=== PATIENT | male | born 1970 | race Two or more races ===

== ENCOUNTER 2018-11-11 19:48 | Emergency (ER) | payer MEDICAID ==
[~2018-11-11] VITALS: Ht 185.4 cm; Wt 94.3 kg
[~2018-11-11 19:48] MED LIST: BP MEDS; BUPR100 PO; CLIN150 PO; Cipro500 MG PO; Cleocin HCl300 MG PO; HYDR1TAB94 PO; LEVFLO500 PO; Norco 5-325 Ta1 EACH PO; Percocet 10-321 EACH PO; Percocet 5-3251 EACH PO; SULTRIDS PO; Vibramycin100 MG PO
== END 2018-11-11 21:33 | disposition home or self-care (01) ==
LOC: ER 19:48
DX: N34.2 Other urethritis (principal); Z20.2 Contact with and (suspected) exposure to infections with a predominantly sexual mode of transmission
CPT/HCPCS: 96372; 99283-25; J1580

== ENCOUNTER 2019-01-02 06:14 | Day surgery (SDC) | payer OTHER ==
[~2019-01-02] VITALS: Ht 185.4 cm; Wt 93.2 kg
[~2019-01-02 06:14] MED LIST changes: +Bactrim Ds Tab1 EACH PO; +CEPH500 PO
--- NOTE | 2019-01-02 07:58 | NUR ---
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
--- NOTE | 2019-01-02 08:34 | NUR ---
01/02/19 0834 Ashley Weir PT MOVING THROUGH OUT PROCEDURE. PRIOR TO PROCEDURE STARTING PT WAS DROWSY IN PRE-OP, BP HIGH, AWARE AND DR. PEREZ TO PROCEED
== END 2019-01-02 09:10 | disposition home or self-care (01) ==
LOC: ORSCSDS 06:14
PROVIDERS: Surgery
PROC: 0DJD8ZZ Inspection of Lower Intestinal Tract, Via Natural or Artificial Opening Endoscopic (ICD-10-PCS; principal; 2019-01-02 08:00)
DX: K62.5 Hemorrhage of anus and rectum (principal); Z86.010 Personal history of colon polyps; Z80.0 Family history of malignant neoplasm of digestive organs; E78.00 Pure hypercholesterolemia, unspecified; Z87.891 Personal history of nicotine dependence
CPT/HCPCS: J0461; J2250; J2405; J2704; J7120

== ENCOUNTER 2019-04-01 10:53 | Emergency (ER) | payer OTHER ==
[~2019-04-01] VITALS: Ht 185.4 cm; Wt 90.7 kg
[2019-04-01] MEDS ORDERED: SUBOXONE 8 MG-1 EACH PO (11:01)
== END 2019-04-01 12:22 | disposition home or self-care (01) ==
LOC: ER 10:53
DX: K40.90 Unilateral inguinal hernia, without obstruction or gangrene, not specified as recurrent (principal); I10 Essential (primary) hypertension; E78.00 Pure hypercholesterolemia, unspecified; Z88.0 Allergy status to penicillin; F17.210 Nicotine dependence, cigarettes, uncomplicated
CPT/HCPCS: 99283

== ENCOUNTER 2019-04-24 09:20 | Emergency (ER) | payer OTHER ==
[~2019-04-24] VITALS: Ht 185.4 cm; Wt 86.2 kg
[~2019-04-24 09:20] MED LIST changes: +SUBOXONE 8 MG-1 EACH PO
[2019-04-24] MEDS ORDERED: [UNRECOGNIZED DRUG - OTHER] IM (09:36)
== END 2019-04-24 10:24 | disposition home or self-care (01) ==
LOC: ER 09:20
DX: I10 Essential (primary) hypertension (principal); M79.89 Other specified soft tissue disorders; F17.200 Nicotine dependence, unspecified, uncomplicated; Z91.19 Patient's noncompliance with other medical treatment and regimen; Z88.0 Allergy status to penicillin; Z79.891 Long term (current) use of opiate analgesic
CPT/HCPCS: 99283

== ENCOUNTER 2019-05-04 09:38 | Emergency (ER) | payer OTHER ==
[~2019-05-04] VITALS: Ht 185.4 cm; Wt 90.7 kg
[~2019-05-04 09:38] MED LIST changes: +[UNRECOGNIZED DRUG - OTHER] IM
[2019-05-04] MEDS ORDERED: Methadone HCl10 MG PO (10:11)
[2019-05-04] MEDS ORDERED: LISI20 PO (10:11)
[2019-05-04] MEDS ORDERED: Bactrim Ds Tab1 EACH PO (10:15)
[2019-05-04] MEDS ORDERED: CEPH500 PO (10:15)
== END 2019-05-04 10:23 | disposition home or self-care (01) ==
LOC: ER 09:38
DX: L03.116 Cellulitis of left lower limb (principal); I10 Essential (primary) hypertension; F17.200 Nicotine dependence, unspecified, uncomplicated; Z88.0 Allergy status to penicillin; Z79.899 Other long term (current) drug therapy; Z79.891 Long term (current) use of opiate analgesic
CPT/HCPCS: 99283

== ENCOUNTER 2019-09-19 23:57 | Emergency (ER) | payer OTHER ==
[~2019-09-19] VITALS: Ht 182.9 cm; Wt 104.3 kg
[~2019-09-19 23:57] MED LIST changes: +LISI20 PO; +Methadone HCl10 MG PO
== END 2019-09-20 02:15 | disposition left against medical advice (07) ==
LOC: ER 23:57
DX: Z53.21 Procedure and treatment not carried out due to patient leaving prior to being seen by health care provider (principal)

== ENCOUNTER 2020-04-24 15:05 | Emergency (ER) | payer OTHER ==
[~2020-04-24] VITALS: Ht 185.4 cm; Wt 104.3 kg
[2020-04-24] MEDS ORDERED: Bactrim Ds Tab1 EACH PO (15:33)
[2020-04-24] MEDS ORDERED: Keflex500 MG PO (15:33)
== END 2020-04-24 15:42 | disposition home or self-care (01) ==
LOC: ER 15:05
DX: L03.114 Cellulitis of left upper limb (principal); I10 Essential (primary) hypertension; F17.200 Nicotine dependence, unspecified, uncomplicated; Z88.0 Allergy status to penicillin; Z79.899 Other long term (current) drug therapy
CPT/HCPCS: 99283; A9270-GY

== ENCOUNTER 2020-11-24 16:29 | Emergency (ER) | payer OTHER ==
[~2020-11-24] VITALS: Ht 185.4 cm; Wt 104.3 kg
[~2020-11-24 16:29] MED LIST changes: +Keflex500 MG PO
== END 2020-11-24 17:47 | disposition left against medical advice (07) ==
LOC: ER 16:29
DX: Z53.21 Procedure and treatment not carried out due to patient leaving prior to being seen by health care provider (principal)

== ENCOUNTER 2020-11-27 04:14 | Emergency (ER) | payer OTHER ==
[~2020-11-27] VITALS: Ht 185.4 cm; Wt 104.3 kg
[2020-11-27 05:53] LABS: Alanine Aminotransfer (ALT/SGP 20 U/L (12-78); Albumin, Blood 3.5 g/dL (3.4-5.0); Alk Phos 119 U/L (50-136); Anion Gap 4 mmol/L (6-16); Aspartate Aminotrans (AST/SGOT 22 U/L (12-37); Bilirubin, Total 0.2 mg/dL (0.1-1.0); Blood Urea Nitrogen 22 mg/dL (8-24); Bun/Creatinine Ratio 20.2 (12.0-20.0); CO2, Blood 29 mmol/L (21-32); Calcium, Blood 8.5 mg/dL (8.5-10.1); Chloride, Blood 104 mmol/L (98-108); Creatinine, Blood 1.09 mg/dL (0.60-1.20); Globulin, Blood 3.4 g/dL (2.2-4.0); Glomerular Filtration Rate >60 (60-); Glucose, Blood 99 mg/dL (70-99); Potassium, Blood 3.9 mmol/L (3.5-5.5); Sodium, Blood 137 mmol/L (136-145); Total Protein, Blood 6.9 g/dL (6.4-8.2)
[2020-11-27] MEDS ORDERED: Prinivil10 MG PO (05:58)
== END 2020-11-27 06:54 | disposition home or self-care (01) ==
LOC: ER 04:14
PROVIDERS: Emergency Medicine
DX: I10 Essential (primary) hypertension (principal); F15.10 Other stimulant abuse, uncomplicated; E78.5 Hyperlipidemia, unspecified; F17.200 Nicotine dependence, unspecified, uncomplicated; Z76.0 Encounter for issue of repeat prescription; Z88.0 Allergy status to penicillin; Z79.899 Other long term (current) drug therapy
CPT/HCPCS: 36415; 70450; 80053; 93005; 93010; 99284-25

== ENCOUNTER 2021-09-23 22:30 | Emergency (ER) | payer OTHER ==
[~2021-09-23] VITALS: Ht 185.4 cm; Wt 104.3 kg
[~2021-09-23 22:30] MED LIST changes: +Prinivil10 MG PO
[2021-09-24] MEDS ORDERED: NARCAN4 M1 (00:15)
== END 2021-09-24 00:15 | disposition home or self-care (01) ==
LOC: ER 22:30
DX: T40.1X1A Poisoning by heroin, accidental (unintentional), initial encounter (principal); I10 Essential (primary) hypertension; E78.5 Hyperlipidemia, unspecified; Z79.899 Other long term (current) drug therapy; Z88.0 Allergy status to penicillin; F17.200 Nicotine dependence, unspecified, uncomplicated
CPT/HCPCS: 93005; 93010; 96374; 99284-25; J2310

== ENCOUNTER 2022-01-24 18:54 | Emergency (ER) | payer OTHER ==
[~2022-01-24] VITALS: Ht 185.4 cm; Wt 106.6 kg
[~2022-01-24 18:54] MED LIST changes: +NARCAN4 M1
== END 2022-01-24 19:54 | disposition home or self-care (01) ==
LOC: ER 18:54
DX: M70.22 Olecranon bursitis, left elbow (principal); M70.21 Olecranon bursitis, right elbow; I10 Essential (primary) hypertension; E78.5 Hyperlipidemia, unspecified; F17.200 Nicotine dependence, unspecified, uncomplicated; Z88.0 Allergy status to penicillin; Z79.899 Other long term (current) drug therapy
CPT/HCPCS: 99283

== ENCOUNTER 2022-11-04 07:53 | Emergency (ER) | payer OTHER ==
[~2022-11-04] VITALS: Ht 185.4 cm; Wt 108.9 kg
[~2022-11-04 07:53] MED LIST changes: +IBUP800 PO; +LOSARTAN-HCTZ1 EAC6 PO
[2022-11-04] MEDS ORDERED: LOSARTAN-HCTZ1 EAC6 PO (09:20)
[2022-11-04 09:28] VITALS: BP 190/112
== END 2022-11-04 09:28 | disposition home or self-care (01) ==
LOC: ER 07:53
DX: S01.81XA Laceration without foreign body of other part of head, initial encounter (principal); W01.0XXA Fall on same level from slipping, tripping and stumbling without subsequent striking against object, initial encounter; I10 Essential (primary) hypertension; F17.210 Nicotine dependence, cigarettes, uncomplicated; Z88.0 Allergy status to penicillin; Z88.8 Allergy status to other drugs, medicaments and biological substances
CPT/HCPCS: 12013; 99282-25

== ENCOUNTER 2024-01-13 00:59 | Emergency (ER) | payer OTHER ==
[~2024-01-13] VITALS: Ht 185.4 cm; Wt 113.4 kg
[2024-01-13 01:55] VITALS: BP 169/112
[2024-01-13] MEDS ORDERED: Lisinopril 20 MG Tab PO ONE (02:15)
[2024-01-13] MEDS ORDERED: LISI20 PO (02:17)
[2024-01-13] MEDS ORDERED: Lisinopril 20 MG Tab PO SCH (09:00)
== END 2024-01-13 02:19 | disposition home or self-care (01) ==
LOC: ER 00:59
DX: Z76.0 Encounter for issue of repeat prescription (principal); I10 Essential (primary) hypertension; E78.00 Pure hypercholesterolemia, unspecified; F17.210 Nicotine dependence, cigarettes, uncomplicated
CPT/HCPCS: 99281; A9270

== ENCOUNTER 2024-01-20 14:40 | Emergency (ER) | payer OTHER ==
[~2024-01-20] VITALS: Ht 185.4 cm; Wt 116.6 kg
[2024-01-20 15:36] LABS: BASOPHILS ABSOLUTE AUTO 0.09 K/mm3 (0.00-0.23); BASOPHILS PERCENT AUTO 0 % (0-2); EOSINOPHILS ABSOLUTE AUTO 0.12 K/mm3 (0.00-0.68); EOSINOPHILS PERCENT AUTO 1 % (0-6); Hematocrit 46.8 % (37.0-53.0); Hemoglobin 15.8 g/dL (13.5-17.5); IMMATURE GRAN ABSOLUTE AUTO 0.06 K/mm3 (0.00-0.10); IMMATURE GRAN PERCENT AUTO 0 % (0-1); LYMPHOCYTES ABSOLUTE AUTO 2.47 K/mm3 (0.84-5.20); LYMPHOCYTES PERCENT AUTO 12 % (21-46); MONOCYTES ABSOLUTE AUTO 1.32 K/mm3 (0.16-1.47); MONOCYTES PERCENT AUTO 7 % (4-13); Mean Corpuscular HGB 29.7 pg (26.0-34.0); Mean Corpuscular HGB Conc 33.8 g/dL (31.5-36.5); Mean Corpuscular Volume 88 fL (80-100); NEUTROPHILS ABSOLUTE AUTO 16.12 K/mm3 (1.96-9.15); NEUTROPHILS PERCENT AUTO 80 % (41-73); Platelet Count 245 K/mm3 (150-400); RDW Coefficient Variation 13.3 % (11.7-14.2); RDW Standard Deviation 42.7 fL (35.1-46.3); Red Blood Cell Count 5.32 M/mm3 (4.30-5.90); White Blood Cell Count 20.18 K/mm3 (4.00-11.30)
[2024-01-20 15:57] LABS: Albumin, Blood 4.1 g/dL (3.4-5.0); Bilirubin, Total 0.4 mg/dL (0.1-1.0); Bun/Creatinine Ratio 8.7 (12.0-20.0); Calcium, Blood 9.1 mg/dL (8.5-10.1); Creatinine, Blood 4.96 mg/dL (0.60-1.20); Globulin, Blood 4.1 g/dL (2.2-4.0); Potassium, Blood 3.5 mmol/L (3.5-5.5); Total Protein, Blood 8.2 g/dL (6.4-8.2)
[2024-01-20] MEDS ORDERED: NS 1,000 ML IV ONE (16:31)
[2024-01-20] MEDS ORDERED: NS 1,000 ML IV SCH ×3 (16:35→18:40)
[2024-01-20 17:57] LABS: Source, Urine Clean Catch
[2024-01-20 18:02] LABS: Appearance, Urine Hazy (Clear); Blood, Urine 1+ (Neg); Color, Urine Amber (P-Yellow); Glucose Qualitative, Urine Neg (Neg); Ketones, Urine 1+ (Neg); Leukocyte Esterase, Urine 2+ (Neg); Nitrite, Urine Neg (Neg); Protein, Urine 3+ (Neg); Specific Gravity, Urine 1.025 (1.003-1.022); Urobilinogen, Urine 1+ (Normal)
[2024-01-20 18:10] LABS: Bilirubin, Urine 2+ (Neg)
[2024-01-20 18:11] LABS: Amorphous Light (0-Heavy); Bacteria Few /hpf; Squamous Epithelial Cells Rare /hpf (Few)
[2024-01-20 18:13] LABS: U Amphetamine Screen DETECTED; U Barbituate Screen Not Detected; U Buprenorphine Screen DETECTED; U Methamphetamine Screen DETECTED
[2024-01-20 18:14] LABS: U Benzodiazapine Screen Not Detected; U Cannabinoids Screen Not Detected; U Cocaine Screen Not Detected; U Methadone Screen Not Detected; U Opiates Screen Not Detected; U Oxycodone Screen Not Detected; U Phencyclidine Screen Not Detected
[2024-01-20 19:15] VITALS: BP 127/78
== END 2024-01-20 21:30 | disposition left against medical advice (07) ==
LOC: ER 14:40
PROVIDERS: Emergency Medicine; Nurse Practitioner
DX: N17.9 Acute kidney failure, unspecified (principal); R55 Syncope and collapse; R19.7 Diarrhea, unspecified; I10 Essential (primary) hypertension; E78.00 Pure hypercholesterolemia, unspecified; E78.5 Hyperlipidemia, unspecified; F17.210 Nicotine dependence, cigarettes, uncomplicated; Z79.899 Other long term (current) drug therapy; Z88.0 Allergy status to penicillin
CPT/HCPCS: 36415; 74176; 80053; 81001; 83605; 83690; 84484; 85025; 87086; 93005; 93010; 96360; 96361; 99284-25; J7030

== ENCOUNTER 2024-01-24 03:52 | Emergency (ER) | payer OTHER ==
[~2024-01-24] VITALS: Ht 185.4 cm; Wt 113.4 kg
[2024-01-24 04:06] VITALS: BP 161/102
[2024-01-24 04:56] LABS: Albumin, Blood 3.9 g/dL (3.4-5.0); Bilirubin, Total 0.4 mg/dL (0.1-1.0); Bun/Creatinine Ratio 20.6 (12.0-20.0); Calcium, Blood 8.7 mg/dL (8.5-10.1); Creatinine, Blood 1.99 mg/dL (0.60-1.20); Globulin, Blood 3.8 g/dL (2.2-4.0); Total Protein, Blood 7.7 g/dL (6.4-8.2)
== END 2024-01-24 04:59 | disposition left against medical advice (07) ==
LOC: ER 03:52
PROVIDERS: Emergency Medicine
DX: Z53.21 Procedure and treatment not carried out due to patient leaving prior to being seen by health care provider (principal)
CPT/HCPCS: 36415; 80053; 93005; 93010

== ENCOUNTER 2024-03-31 20:46 | Emergency (ER) | payer OTHER ==
[~2024-03-31] VITALS: Ht 185.4 cm; Wt 113.4 kg
[2024-03-31 20:52] VITALS: BP 183/115
[2024-03-31] MEDS ORDERED: Ibuprofen 600 MG Tab PO ONE (22:45)
[2024-03-31] MEDS ORDERED: Acetaminophen 500 MG Tab PO ONE (22:45)
== END 2024-03-31 23:06 | disposition home or self-care (01) ==
LOC: ER 20:46
DX: S50.02XA Contusion of left elbow, initial encounter (principal); V29.888A Rider (driver) (passenger) of other motorcycle injured in other specified transport accidents, initial encounter; I10 Essential (primary) hypertension; F17.210 Nicotine dependence, cigarettes, uncomplicated; Z79.899 Other long term (current) drug therapy; Z88.0 Allergy status to penicillin
CPT/HCPCS: 73080; A9270

== ENCOUNTER 2025-03-31 04:18 | Emergency (ER) | payer OTHER ==
[~2025-03-31] VITALS: Ht 182.9 cm; Wt 108.9 kg
[2025-03-31 05:01] VITALS: BP 156/100
== END 2025-03-31 05:16 | disposition home or self-care (01) ==
LOC: ER 04:18
DX: I10 Essential (primary) hypertension (principal); T46.4X6A Underdosing of angiotensin-converting-enzyme inhibitors, initial encounter; E78.00 Pure hypercholesterolemia, unspecified; F17.210 Nicotine dependence, cigarettes, uncomplicated; Z91.148 Patient's other noncompliance with medication regimen for other reason; Z88.0 Allergy status to penicillin
CPT/HCPCS: 99283

== ENCOUNTER 2025-07-12 20:44 | Emergency (ER) | payer OTHER ==
[~2025-07-12] VITALS: Ht 182.9 cm; Wt 108.9 kg
[2025-07-12 21:22] LABS: BASOPHILS ABSOLUTE AUTO 0.07 K/mm3 (0.00-0.23); BASOPHILS PERCENT AUTO 0 % (0-2); EOSINOPHILS ABSOLUTE AUTO 0.16 K/mm3 (0.00-0.68); EOSINOPHILS PERCENT AUTO 1 % (0-6); Hematocrit 37.6 % (37.0-53.0); Hemoglobin 12.4 g/dL (13.5-17.5); IMMATURE GRAN ABSOLUTE AUTO 0.08 K/mm3 (0.00-0.10); IMMATURE GRAN PERCENT AUTO 1 % (0-1); LYMPHOCYTES ABSOLUTE AUTO 1.42 K/mm3 (0.84-5.20); LYMPHOCYTES PERCENT AUTO 8 % (21-46); MONOCYTES ABSOLUTE AUTO 1.73 K/mm3 (0.16-1.47); MONOCYTES PERCENT AUTO 10 % (4-13); Mean Corpuscular HGB Conc 33.0 g/dL (31.5-36.5); Mean Corpuscular Volume 92 fL (80-100); NEUTROPHILS ABSOLUTE AUTO 14.31 K/mm3 (1.96-9.15); NEUTROPHILS PERCENT AUTO 81 % (41-73); NRBC ABSOLUTE 0.00 K/mm3 (0.00-0.02); NRBC Auto 0.0 /100 WBC (0.0-0.2); Platelet Count 190 K/mm3 (150-400); RDW Coefficient Variation 13.2 % (11.7-14.2); RDW Standard Deviation 44.9 fL (35.1-46.3)
[2025-07-12 21:55] LABS: Alanine Aminotransfer (ALT/SGP 21.0 U/L (12-78); Albumin, Blood 3.8 g/dL (3.4-5.0); Albumin/Globulin Ratio 1.0 (0.8-1.8); Anion Gap 7.0 mmol/L (3-11); Aspartate Aminotrans (AST/SGOT 17.0 U/L (12-37); Bilirubin, Total 0.4 mg/dL (0.1-1.0); Blood Urea Nitrogen 33.0 mg/dL (8-24); CO2, Blood 29.0 mmol/L (21-32); Calcium, Blood 8.9 mg/dL (8.5-10.1); Chloride, Blood 104.0 mmol/L (98-108); Creatinine, Blood 1.85 mg/dL (0.60-1.20); Globulin, Blood 3.8 g/dL (2.2-4.0); Glucose, Blood 120.0 mg/dL (70-99); Potassium, Blood 4.0 mmol/L (3.5-5.5); Sodium, Blood 136.0 mmol/L (136-145); Total Protein, Blood 7.6 g/dL (6.4-8.2)
[2025-07-12] MEDS ORDERED: Clindamycin HC150 MG PO (22:35)
[2025-07-12 22:59] VITALS: BP 135/90
== END 2025-07-12 23:00 | disposition home or self-care (01) ==
LOC: ER 20:44
PROVIDERS: Student in an Organized Health Care Education/Training Program
DX: L03.113 Cellulitis of right upper limb (principal); I10 Essential (primary) hypertension; E78.5 Hyperlipidemia, unspecified; F17.210 Nicotine dependence, cigarettes, uncomplicated; Z88.0 Allergy status to penicillin; Z79.899 Other long term (current) drug therapy
CPT/HCPCS: 80053; 85025; 99283; A9270